=== PATIENT | male | born 1995 | race Caucasian/White ===

== ENCOUNTER 2020-10-28 20:11 | Emergency (ER) | payer BC ==
[2020-10-28] MEDS ORDERED: Acetaminophen 500 MG TAB ONE (20:53)
[2020-10-28] MEDS ORDERED: Ibuprofen 200 MG TAB ONE (21:30)
[2020-10-28] MEDS ORDERED: Ondansetron PF 4 MG/2 ML Vial ONE (21:30)
[2020-10-28 23:01] LABS: MONO NEGATIVE CONTROL ZONE White (Negative) (White); MONO POSITIVE CONTROL Pink Line (Positive) (PINK/RED); Mononucleosis NEGATIVE (NEGATIVE)
[2020-10-28] MEDS ORDERED: Dexamethasone 10 MG/ML VIAL ONE (23:56)
== END 2020-10-29 00:16 | disposition home or self-care (01) ==
LOC: CSHERS 20:11
DX: B34.9 Viral infection, unspecified (principal)
CPT/HCPCS: 71046; 86308; 87081; 87430; 87804; 96372; J1100; J2405